=== PATIENT | female | born 1975 | race Two or more races ===

== ENCOUNTER 2023-01-26 15:48 | Emergency (ER) | payer OTHER ==
[~2023-01-26] VITALS: Ht 162.6 cm; Wt 63.5 kg
== END 2023-01-26 19:17 | disposition home or self-care (01) ==
LOC: ER 15:48
PROVIDERS: Emergency Medicine
DX: N20.0 Calculus of kidney (principal); R10.9 Unspecified abdominal pain; Z87.442 Personal history of urinary calculi